=== PATIENT | female | born 1995 | race Caucasian/White ===

== ENCOUNTER 2018-01-07 20:41 | Emergency (ER) | payer BC, OTHER ==
[~2018-01-07] VITALS: Ht 167.6 cm; Wt 101.2 kg
[~2018-01-07 20:41] MED LIST: ALBU90OI INH; BUPR75 PO; FAMO20 PO; HYDACE25S PR; HYDR1TAB94 PO; Levaquin750 MG PO; METF500 PO; METF500C PO; MULVITMINE PO; OXYC5 PO; PROCODE120 PO; Percocet 5-3251 EACH PO; TRAM50 PO; Zithromax250 MG PO
[2018-01-07] MEDS ORDERED: PSEU120ER PO (21:19)
[2018-01-07] MEDS ORDERED: Cheratussin AC118 ML PO (21:19)
== END 2018-01-07 21:25 | disposition home or self-care (01) ==
LOC: ER 20:41
DX: J06.9 Acute upper respiratory infection, unspecified (principal); Z88.8 Allergy status to other drugs, medicaments and biological substances; Z79.84 Long term (current) use of oral hypoglycemic drugs; F17.210 Nicotine dependence, cigarettes, uncomplicated
CPT/HCPCS: 71046; 99283

== ENCOUNTER → 2018-07-03 | Outpatient (CLI) | payer BC, OTHER ==
[~2018-07-03] MED LIST changes: +Bactrim Ds Tab1 EACH PO; +CHOL10002; +Cheratussin AC118 ML PO; +DESV50 PO; +PSEU120ER PO; +Pyridium100 MG PO; +Verotin-Gr Cap1 EACH PO
[2018-07-03 15:17] LABS: Source, Urine Clean Catch
[2018-07-03 16:49] LABS: Appearance, Urine Clear (Clear); Bilirubin, Urine Neg (Neg); Blood, Urine 3+ (Neg); Color, Urine Yellow (P-Yellow); Glucose Qualitative, Urine Neg (Neg); Ketones, Urine Neg (Neg); Leukocyte Esterase, Urine 1+ (Neg); Nitrite, Urine Pos (Neg); Protein, Urine 2+ (Neg); Urobilinogen, Urine NORM (Normal)
[2018-07-03 16:59] LABS: Bacteria Many /hpf; Squamous Epithelial Cells Few /hpf (Few); White Blood Cells, Urine 25-50 /hpf (0-5)
== END ==
LOC: LAB SHORT 15:13 → LAB UCHC 15:13
PROVIDERS: Nurse Practitioner Primary Care
DX: R30.0 Dysuria (principal)
CPT/HCPCS: 81001; 87077; 87086; 87186

== ENCOUNTER 2018-07-05 11:51 | Emergency (ER) | payer BC, OTHER ==
[~2018-07-05] VITALS: Ht 165.1 cm; Wt 103.9 kg
[~2018-07-05 11:51] MED LIST changes: -Bactrim Ds Tab1 EACH PO; -CHOL10002; -DESV50 PO; -Pyridium100 MG PO; -Verotin-Gr Cap1 EACH PO
[2018-07-05 12:43] LABS: Source, Urine Voided
[2018-07-05] MEDS ORDERED: Verotin-Gr Cap1 EACH PO (12:44)
[2018-07-05] MEDS ORDERED: DESV50 PO (12:44)
[2018-07-05] MEDS ORDERED: CHOL10002 (12:45)
[2018-07-05 12:46] LABS: Bilirubin, Urine Neg (Neg); Blood, Urine 3+ (Neg); Glucose Qualitative, Urine Neg (Neg); Ketones, Urine Neg (Neg); Leukocyte Esterase, Urine 3+ (Neg); Nitrite, Urine Neg (Neg); Protein, Urine Neg (Neg); Urobilinogen, Urine NORM (Normal)
[2018-07-05 12:50] LABS: Appearance, Urine Clear (Clear); Color, Urine Yellow (P-Yellow)
[2018-07-05 12:53] LABS: Bacteria Few /hpf; Squamous Epithelial Cells Few /hpf (Few); White Blood Cells, Urine 25-50 /hpf (0-5)
[2018-07-05] MEDS ORDERED: Bactrim Ds Tab1 EACH PO (13:24)
[2018-07-05] MEDS ORDERED: Pyridium100 MG PO (13:24)
== END 2018-07-05 13:43 | disposition home or self-care (01) ==
LOC: ER 11:51
PROVIDERS: Nurse Practitioner Family
DX: N12 Tubulo-interstitial nephritis, not specified as acute or chronic (principal); F17.200 Nicotine dependence, unspecified, uncomplicated; Z91.048 Other nonmedicinal substance allergy status; Z79.84 Long term (current) use of oral hypoglycemic drugs; Z79.899 Other long term (current) drug therapy
CPT/HCPCS: 81001; 81025; 87077; 87086; 87186; 99283

== ENCOUNTER → 2021-01-04 | Outpatient (CLI) | payer OTHER ==
[~2021-01-04] MED LIST changes: +Bactrim Ds Tab1 EACH PO; +CHOL10002; +DESV50 PO; +Pyridium100 MG PO; +Verotin-Gr Cap1 EACH PO
== END | disposition home or self-care (01) ==
LOC: LAB SHORT 16:00 → LAB 16:00
DX: L02.92 Furuncle, unspecified (principal)
CPT/HCPCS: 87081

== ENCOUNTER → 2022-04-24 | Outpatient (CLI) | payer OTHER ==
[2022-04-24 13:57] LABS: BASOPHILS ABSOLUTE AUTO 0.07 K/mm3 (0.00-0.23); BASOPHILS PERCENT AUTO 1 % (0-2); EOSINOPHILS ABSOLUTE AUTO 0.22 K/mm3 (0.00-0.68); EOSINOPHILS PERCENT AUTO 2 % (0-6); Hematocrit 43.9 % (33.0-51.0); Hemoglobin 14.6 g/dL (11.5-16.0); IMMATURE GRAN ABSOLUTE AUTO 0.02 K/mm3 (0.00-0.10); IMMATURE GRAN PERCENT AUTO 0 % (0-1); LYMPHOCYTES ABSOLUTE AUTO 1.45 K/mm3 (0.84-5.20); LYMPHOCYTES PERCENT AUTO 16 % (21-46); MONOCYTES ABSOLUTE AUTO 0.63 K/mm3 (0.16-1.47); MONOCYTES PERCENT AUTO 7 % (4-13); Mean Corpuscular HGB 29.5 pg (26.0-34.0); Mean Corpuscular HGB Conc 33.3 g/dL (31.5-36.5); Mean Corpuscular Volume 89 fL (80-100); Mean Platelet Volume 10.1 fL (9.1-12.4); NEUTROPHILS ABSOLUTE AUTO 6.98 K/mm3 (1.96-9.15); NEUTROPHILS PERCENT AUTO 75 % (41-73); Platelet Count 238 K/mm3 (150-400); Red Blood Cell Count 4.95 M/mm3 (3.80-5.20); White Blood Cell Count 9.37 K/mm3 (4.00-11.30)
[2022-04-24 14:56] LABS: Albumin, Blood 3.6 g/dL (3.4-5.0); Bilirubin, Total 0.3 mg/dL (0.1-1.0); Bun/Creatinine Ratio 13.7 (12.0-20.0); Calcium, Blood 9.2 mg/dL (8.5-10.1); Creatinine, Blood 0.44 mg/dL (0.40-1.00); Globulin, Blood 3.5 g/dL (2.2-4.0); Potassium, Blood 3.9 mmol/L (3.5-5.5); Thyroid Stimulating Hormone 1.36 uIU/mL (0.360-4.800); Total Protein, Blood 7.1 g/dL (6.4-8.2)
== END | disposition home or self-care (01) ==
LOC: LAB SHORT 11:20
PROVIDERS: Family Medicine
DX: F32.9 Major depressive disorder, single episode, unspecified (principal); B34.9 Viral infection, unspecified
CPT/HCPCS: 80053; 84443; 85025; 87081

== ENCOUNTER → 2022-08-26 | Outpatient (CLI) | payer OTHER ==
[2022-08-27 10:43] LABS: Candida species (DNA Probe) Negative (NEGATIVE); G. vaginalis (DNA Probe) Positive (NEGATIVE); T. vaginalis (DNA Probe) Negative (NEGATIVE)
== END | disposition home or self-care (01) ==
LOC: LAB 15:24 → LAB SHORT 15:24
PROVIDERS: Registered Nurse Community Health
DX: Z20.2 Contact with and (suspected) exposure to infections with a predominantly sexual mode of transmission (principal)
CPT/HCPCS: 87480; 87510; 87660